=== PATIENT | female | born 1955 | race Caucasian/White ===

== ENCOUNTER 2024-03-24 13:26 | Emergency (ER) | payer BC, SELFPAY ==
[2024-03-24 13:46] VITALS: BP 100/62
[2024-03-24 16:02] VITALS: BP 192/98
--- NOTE | 2024-03-25 00:29 | ED.GENMED ---
History of Present Illness
General
Chief Complaint: Nose Bleed
Source: patient
Exam Limitations: none
Time Seen by Provider: 03/24/24 15:03
Nursing documentation reviewed up to this point in time: agreed with
History of Present Illness
History of Present Illness:
68-year-old female with a history of hypertension presents to the emergency room for evaluation of epistaxis. Patient reports that she had some spotting of blood from her nose yesterday that lasted for about 10 minutes and resolved. She then said
this morning she woke up and had epistaxis from left nare that she could not control. Initially went to urgent care and had nasal tampon placed and was referred to the ER because she was bleeding around this packing. She has not noticed any
bleeding into the throat or swallowing blood. She is not on any blood thinners. Denies any trauma. She believes this was exacerbated by dry air in the house that she recently turned on the heat.
Past History
Past History
ED Past Medical History: None
Review of Systems
Review of Systems
All Other Systems: ROS reviewed and negative except as documented in HPI and ROS
EENT: Reports other (Epistaxis)
Phy Exam
Physical Exam
Physical Exam:
General: Well appearing and non-toxic
HEENT: protecting airway; patient has dry friable mucosa along the left nasal septum but no focal source of bleeding; right nare clear no bleeding; no blood noted in the posterior oropharynx
Neck: appears supple
CV: No evidence of cyanosis
Resp: No accessory muscle use
Abd: Non-distended
Extremities: No deformities
Neuro: Alert
Psych: Normal affect
Skin: Intact
Scores
Heart Failure Risk
Heart Failure Risk Score: Not Applicable
Heart Score for Chest Pain Patients
STEMI patient?: Not applicable
Withdrawal Assessment of Alcohol
Withdrawal Assessment Completed?: Not applicable
Course
Vital Signs
Initial and Last Documented VS:
Initial Vital Signs
Temp Pulse Resp BP Pulse Ox
36.7 C 65 18 100/62 97
03/24/24 13:46 03/24/24 13:46 03/24/24 13:46 03/24/24 13:46 03/24/24 13:46
Last Documented Vital Signs
Temp Pulse Resp BP Pulse Ox
36.7 C 61 18 192/98 100
03/24/24 13:46 03/24/24 16:02 03/24/24 16:02 03/24/24 16:02 03/24/24 16:02
Procedures
Nosebleed
Drug treatment: Epinephrine
Treatment: local pressure applied
Post treatment bleeding: none- good control
MDM/Problems Addressed
Differential Diagnosis Includes:
Epistaxis
MDM/Problems Addressed:
68-year-old female presents with acute anterior epistaxis from the left naris likely related to dry air in the setting of recently turning on her heat. Was refractory to direct pressure at urgent care. I removed the small packing placed at urgent
care and applied a cottonball soaked with epinephrine for 10 minutes followed by direct under pressure. Fortunately we were able to achieve hemostasis this way. Observed with no additional bleeding. Discharged with instructions on measures to
take at home should she bleed once again. We also spoke about ED return precautions. Instructed to apply some Vaseline to the nasal septum as well as to keep it moist. ENT referral as needed. All questions answered.
*Pulse Oximetry
Patient hypoxic: no
*Critical Care Note
Total Time (30-74mins, 75-104mins- exclusive of procedures): Not Applicable
Data Reviewed
Source: patient
ED Attending Note
-
Portions of this chart may have been created with voice recognition software.� Occasional wrong word or��sound alike� substitutions may have occurred due to the inherent limitations of voice recognition software.
Discharge Plan
Departure
Patient Disposition: Home (Routine Discharge)
Patient with high blood pressure during this ER visit?: No
Discharge Problem:
Acute anterior epistaxis
Instructions: Nosebleeds (DC)
Prescriptions:
No Action
multivitamin [One Daily Multivitamin] 1 EACH tablet
1 ea PO DAILY
latanoprost 1 DROP drops
1 drp RIGHT EYE HS
docusate sodium 100 MG capsule
100 mg PO BID
cyclosporine [Restasis] 10 DROPS dropperette
2 drops BOTH EYES BID
cyanocobalamin (vitamin B-12) [Vitamin B-12] 250 MCG tablet
250 mcg PO DAILY
diphenhydramine HCl [Benadryl] 25 MG capsule
2 cap PO HSPRN PRN (Reason: insomnia/pruritis)
cholecalciferol (vitamin D3) [Vitamin D3] 2,000 UNIT capsule
2,000 unit PO DAILY
sennosides [senna] 1 TABLET tablet
2 tab PO HS Qty: 0 0RF
polyethylene glycol 3350 17 GRAMS powder in packet
17 grams PO DAILY Qty: 0 0RF
famotidine 20 MG tablet
20 mg PO HS Qty: 30 0RF
aspirin 325 MG tablet,delayed release (DR/EC)
325 mg PO BID Qty: 0 0RF
Rx Instructions:
begin 10/21/13 after Xarelto id discontinued
hydrocodone-acetaminophen 1 TABLET tablet
1 tab PO Q4HPRN PRN (Reason: moderate-severe pain) Qty: 75 0RF
Rx Instructions:
DX B/L TKA
bisacodyl [OneLAX Bisacodyl] 10 MG suppository
10 mg [place] DAILYPRN PRN (Reason: constipation) Qty: 0 0RF
bisacodyl 5 MG tablet,delayed release (DR/EC)
10 mg PO DAILYPRN PRN (Reason: constipation) Qty: 0 0RF
rivaroxaban [Xarelto] 20 MG tablet
10 mg PO QPM Qty: 0 0RF
Patient Comments:
for two weeks
Rx Instructions:
stop after last dose Kb santiago 10/20/13
Referrals:
Robe Ricci MD [Family Provider] -
Ike Ricci MD [Active] - As needed
Activity Restrictions/Additional Instructions:
Thank you for visiting the Emergency Department at [facility].
1. Please schedule a follow up appointment as directed. Call first thing tomorrow morning to make an appointment.
2. If indicated, please take your medications as instructed and indicated on discharge paperwork.
3. If any of your symptoms do not improve, or persist, or become more severe within 6-12 hours, please return to the emergency department for further care.
4. Please return to the emergency department if you develop a headache, neck pain/stiffness, fever greater than 100.4F, chest pain, shortness of breath, persistent nausea, vomiting, slurred speech, difficulty walking, numbness/tingling, weakness,
signs of infection or any other symptoms that are worrisome to you.
Please call [phone] if you have any questions.
Interventions
Interventions:
*Risk Screen - Suicide Last Done: 03/24/24 13:46
*General Assessment Last Done: 03/24/24 13:46
*Neglect/Abuse Screening Last Done: 03/24/24 13:46
ED- Fall Risk Assessment Last Done: 03/24/24 16:03
*ED COVID-19 Vaccine History Last Done: 03/24/24 13:46
*Nursing Disposition Last Done: 03/24/24 16:03
ED-EENT Assessment Last Done: 03/24/24 14:12
Discharge Date and Time
Discharge Date/Time: 03/24/24 16:04
Print Language: BULGARIAN
== END 2024-03-24 16:04 | disposition home or self-care (01) ==
LOC: EMR 13:26
PROVIDERS: EMERGENCY PHYSICIAN Emergency Medicine; FAMILY PHYSICIAN Internal Medicine
DX: R04.0 Epistaxis (principal); I10 Essential (primary) hypertension
CPT/HCPCS: 99282